=== PATIENT | male | born 1985 | race African-American/Black ===

== ENCOUNTER 2016-12-10 22:50 | Inpatient (IN) | payer SELFPAY ==
[~2016-12-10] VITALS: Ht 188 cm; Wt 100.0 kg
[2016-12-10 22:52] VITALS: O2SAT 100
[2016-12-10] MEDS ORDERED: LORazepam 2 MG/ML VIAL ONE (22:54)
[2016-12-10] MEDS ORDERED: KETAMINE HCL 500 MG/5 ML VIAL ONE (22:55)
[2016-12-10] MEDS ORDERED: ETOMIDATE 20 MG/10 ML VIAL ONE (22:58)
[2016-12-10] MEDS ORDERED: SUCCINYLCHOLINE CHLORIDE 200 MG/10 ML VIAL ONE (22:59)
[2016-12-10] MEDS ORDERED: DIPHTH/TETANUS/ACEL PERTUSSIS (BOOSTER) 0.5 ML VIAL/PFS IM ONE (23:06)
[2016-12-10] MEDS ORDERED: PROPOFOL 1000 MG/100 ML INJ 100 ML ONE (23:07)
[2016-12-10] MEDS ORDERED: ROCURONIUM INJ 50 MG/5 ML VIAL ONE (23:17)
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
[2016-12-10 23:30] VITALS: O2SAT 100
[2016-12-10] MEDS ORDERED: ONDANSETRON HCL 4 MG/2 ML VIAL IV PRN (23:30)
[2016-12-10] MEDS ORDERED: ENALAPRILAT 1.25 MG/ML VIAL IV PRN (23:30)
[2016-12-10] MEDS ORDERED: MISCELLANEOUS NURSING INFORMATION XX SCH (23:30)
[2016-12-10] MEDS ORDERED: fentaNYL DRIP 250 ML IV SCH (23:30)
[2016-12-10] MEDS ORDERED: SODIUM CHLORIDE 0.9% FLUSH 10 ML FLUSH IV FLUSH PRN (23:30)
[2016-12-10] MEDS ORDERED: CHLORHEXIDINE GLUCONATE 2 % 1 PACK (2 CLOTHS) TOP PRN (23:30)
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
[2016-12-10] MEDS ORDERED: IOHEXOL 350 MG/ML 10 ML VIAL (for RAD DIAG) IV ONE (23:34)
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
--- NOTE | 2016-12-10 23:41 | RADRPT ---
EXAM DATE/TIME: 12/10/2016 22:45 [facility] COMPARISON: No previous studies available for comparison. INDICATIONS : Post intubation. MEDICAL HISTORY : None. SURGICAL HISTORY : None. ENCOUNTER: Subsequent ACUITY: 1 day PAIN SCORE: Non-responsive. LOCATION: Bilateral chest FINDINGS: A single view of the chest demonstrates the lungs to be symmetrically aerated without evidence of mas s, infiltrate or effusion. Endotracheal tube 4 cm above the herminio. Nasogastric tube tip in stomach. The cardiomediastinal contours are unremarkable. Osseous structures are intact. CONCLUSION: No acute disease. Greg Hall MD on December 10, 2016 at 23:38 Board Certified Radiologist. This report was verified electronically.
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
[2016-12-10 23:50] VITALS: O2SAT 100
[2016-12-10 23:51] VITALS: O2SAT 100
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
[2016-12-11] VITALS (17 sets, daily range): BP systolic 120–152; BP diastolic 72–89; PULSE 63–85; RESP 18–34; TEMP 99–100.2; O2SAT 97–100
[2016-12-11] MEDS: CHLORHEXIDINE GLUCONATE 2 % 1 PACK (2 CLOTHS) TOP SCH
[2016-12-11] MEDS: LACTATED RINGER'S 1000 ML INJ 1,000 ML IV SCH ×2 (00:03→07:20)
[2016-12-11] MEDS ORDERED: ONDANSETRON HCL 4 MG/2 ML VIAL IV PRN (00:30)
[2016-12-11] MEDS ORDERED: LACTULOSE SYRUP 20 GM/30 ML CUP PO PRN (00:30)
[2016-12-11] MEDS ORDERED: MAGNESIUM HYDROXIDE SUSP 30 ML CUP PO PRN (00:30)
[2016-12-11] MEDS ORDERED: BISACODYL 10 MG SUPP RECTAL PRN (00:30)
[2016-12-11] MEDS ORDERED: MISCELLANEOUS NURSING INFORMATION XX SCH (00:30)
[2016-12-11] MEDS ORDERED: RESP: ALBUTEROL 2.5 MG/3 ML NEB (PRN) INH (00:30)
[2016-12-11] MEDS ORDERED: SENNOSIDES 8.6 MG TAB PO PRN (00:30)
[2016-12-11] MEDS ORDERED: SODIUM CHLORIDE 0.9% FLUSH 10 ML FLUSH IV FLUSH PRN (00:30)
[2016-12-11] MEDS ORDERED: CHLORHEXIDINE GLUCONATE 2 % 1 PACK (2 CLOTHS) TOP PRN (00:30)
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
[2016-12-11] MEDS ORDERED: MULTIVITAMIN INJ 10 ML, THIAMINE INJ 100 MG, FOLIC ACID INJ 1 MG in SODIUM CHLORID 0.9%... IV ONE (01:00)
[2016-12-11 01:03] LABS: AUTOMATED NEUTROPHIL # 7.3 TH/MM3 (1.8-7.7); BASOPHIL % 0.4 % (0.0-2.0); EOSINOPHIL # 0.1 TH/MM3 (0-0.4); EOSINOPHIL % 0.6 % (0.0-4.0); HEMATOCRIT 39.9 % (39.0-51.0); HEMO FLAGS DIFF FINAL; LYMPH % 17.8 % (9.0-44.0); LYMPHOCYTE # 1.7 TH/MM3 (1.0-4.8); MEAN CELL VOLUME 95.3 FL (80.0-100.0); MEAN CORPUSCULAR HEMOGLOBIN 32.8 PG (27.0-34.0); MEAN CORPUSCULAR HGB CONC 34.4 % (32.0-36.0); MONO % 5.1 % (0.0-8.0); NEUT % 76.1 % (16.0-70.0); PLATELET COUNT 228 TH/MM3 (150-450); RED BLOOD COUNT 4.18 MIL/MM3 (4.50-5.90); RED CELL DISTRIBUTION WIDTH 13.4 % (11.6-17.2); WHITE BLOOD COUNT 9.6 TH/MM3 (4.0-11.0)
[2016-12-11 01:08] LABS: INTERNATIONAL NORMALIZED RATIO 0.9 RATIO; PROTHROMBIN TIME - PATIENT 10.4 SEC (9.8-11.6)
[2016-12-11 01:19] LABS: APTT (PATIENT) 22.3 SEC (24.3-30.1)
[2016-12-11] MEDS: levETIRAcetam INJ 500 MG in SODIUM CHLORIDE 0.9% INJ 100 ML IV SCH ×3 (02:14→21:02)
[2016-12-11 02:24] LABS: BLOOD GAS BASE EXCESS 0.7 mmol/L (-2-2); BLOOD GAS CARBOXYHEMOGLOBIN 3.2 % (0-4); BLOOD GAS HCO3 26 mmol/L (22-26); BLOOD GAS METHEMOGLOBIN 1.1 % (0-2); BLOOD GAS O2 HGB SATURATION 95 % (90-100); BLOOD GAS OXYGEN CONTENT 18.9 Vol % (12.0-20.0); BLOOD GAS PCO2 52 mmHg (38-42); BLOOD GAS PO2 258 mmHg (61-120); BLOOD GAS TOTAL HGB 13.7 G/DL (12.0-16.0); TEMP CORR TO 98.6
[2016-12-11 02:28] LABS: CRITICAL VALUE YES
[2016-12-11 02:29] LABS: OXYGEN DEVICE VENTILATOR
[2016-12-11 02:33] LABS: DRAW SITE RT RADIAL; FIO2 50 %; NUMBER OF ARTERIAL PUNCTURES 1; STAT NO; ULNAR PULSE PRESENT
[2016-12-11] MEDS: PROPOFOL 1000 MG/100 ML INJ 100 ML IV SCH ×3 (02:54→11:10)
[2016-12-11] MEDS: BACITRACIN TOP OINT 15 GM TUBE TOP SCH ×3 (02:55→21:02)
[2016-12-11] MEDS ORDERED: CHLORHEXIDINE GLUCONATE 2 % 1 PACK (2 CLOTHS) TOP SCH (04:00)
[2016-12-11 05:20] LABS: AUTOMATED NEUTROPHIL # 6.4 TH/MM3 (1.8-7.7); BASOPHIL % 0.2 % (0.0-2.0); EOSINOPHIL % 0.4 % (0.0-4.0); HEMATOCRIT 40.6 % (39.0-51.0); HEMO FLAGS DIFF FINAL; LYMPH % 24.2 % (9.0-44.0); LYMPHOCYTE # 2.3 TH/MM3 (1.0-4.8); MEAN CELL VOLUME 95.7 FL (80.0-100.0); MEAN CORPUSCULAR HGB CONC 34.5 % (32.0-36.0); MONO % 7.2 % (0.0-8.0); PLATELET COUNT 221 TH/MM3 (150-450); RED BLOOD COUNT 4.24 MIL/MM3 (4.50-5.90); RED CELL DISTRIBUTION WIDTH 13.6 % (11.6-17.2); WHITE BLOOD COUNT 9.4 TH/MM3 (4.0-11.0)
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
[2016-12-11 05:43] LABS: BICARBONATE 29.5 MEQ/L (21.0-32.0); POTASSIUM 3.5 MEQ/L (3.5-5.1)
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
[2016-12-11] MEDS: CHLORHEXIDINE 0.12% (ORAL KIT) 15 ML CUP MT SCH ×2 (08:00→19:18)
[2016-12-11] MEDS: DOCUSATE SODIUM 50 MG/SENNA 8.6 MG TAB PO SCH ×2 (08:20→21:02)
[2016-12-11] MEDS ORDERED: MULTIVITAMIN INJ 10 ML, THIAMINE INJ 100 MG, FOLIC ACID INJ 1 MG in SODIUM CHLORID 0.9%... IV SCH (09:00)
[2016-12-11] MEDS ORDERED: PANTOPRAZOLE SODIUM 40 MG VIAL IV SCH (09:00)
[2016-12-11] MEDS: ARTIFICIAL TEARS OPTH SOLN 15 ML BTL EACH EYE SCH ×3 (09:00→18:00)
[2016-12-11] MEDS ORDERED: DEXMEDETOMIDINE INJ 200 MCG in SODIUM CHLORIDE 0.9% INJ 50 ML IV SCH (09:15)
[2016-12-11] MEDS: SODIUM CHLORIDE 0.9% FLUSH 10 ML FLUSH IV FLUSH SCH ×2 (11:06→21:02)
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
[2016-12-11] MEDS ORDERED: oxyCODONE/ACETAMINOPHEN 5 MG/325 MG TAB PO PRN (12:30)
[2016-12-11] MEDS: DIAZEPAM 2 MG TAB PO SCH ×2 (12:45→21:00)
[2016-12-11] MEDS: oxyCODONE/ACETAMINOPHEN 5 MG/325 MG TAB PO PRN ×2 (13:00→18:17)
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
[2016-12-11] MEDS ORDERED: FAMOTIDINE 20 MG TAB PO SCH (21:00)
[2016-12-12] VITALS: BP 130/76; PULSE 58; RESP 16; TEMP 98.9; O2SAT 98
[2016-12-12] MEDS: CHLORHEXIDINE GLUCONATE 2 % 1 PACK (2 CLOTHS) TOP SCH (00:32)
[2016-12-12 04:00] VITALS: BP 149/84; PULSE 56; RESP 16; TEMP 99.8; O2SAT 100
[2016-12-12] MEDS: DIAZEPAM 2 MG TAB PO SCH ×2 (04:45→12:30)
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
[2016-12-12] MEDS: DOCUSATE SODIUM 50 MG/SENNA 8.6 MG TAB PO SCH (06:53)
[2016-12-12] MEDS: ARTIFICIAL TEARS OPTH SOLN 15 ML BTL EACH EYE SCH ×3 (07:05→16:06)
[2016-12-12] MEDS: CHLORHEXIDINE 0.12% (ORAL KIT) 15 ML CUP MT SCH (07:05)
--- NOTE | 2016-12-12 07:14 | RADRPT ---
EXAM DATE/TIME: 12/12/2016 06:39 [facility] COMPARISON: No previous studies available for comparison. INDICATIONS : Short of breath, follow up trauma MEDICAL HISTORY : closed head injury, right leg fracture SURGICAL HISTORY : None. ENCOUNTER: Subsequent ACUITY: 3 days PAIN SCORE: 2/10 LOCATION: Bilateral chest FINDINGS: A single view of the chest demonstrates the lungs to be symmetrically aerated without evidence of mas s, infiltrate or effusion. The endotracheal and nasogastric tubes have been removed . The cardiomedi astinal contours are unremarkable. Osseous structures are intact. CONCLUSION: Normal examination. Dennis Downs MD on December 12, 2016 at 7:12 Board Certified Radiologist. This report was verified electronically.
[2016-12-12 07:28] LABS: AUTOMATED NEUTROPHIL # 7.2 TH/MM3 (1.8-7.7); BASOPHIL # 0.1 TH/MM3 (0-0.2); BASOPHIL % 0.7 % (0.0-2.0); EOSINOPHIL # 0.1 TH/MM3 (0-0.4); EOSINOPHIL % 1.2 % (0.0-4.0); HEMATOCRIT 41.4 % (39.0-51.0); HEMO FLAGS DIFF FINAL; LYMPH % 25.2 % (9.0-44.0); LYMPHOCYTE # 2.8 TH/MM3 (1.0-4.8); MEAN CELL VOLUME 96.4 FL (80.0-100.0); MEAN CORPUSCULAR HGB CONC 33.2 % (32.0-36.0); MONO % 8.9 % (0.0-8.0); PLATELET COUNT 195 TH/MM3 (150-450); RED CELL DISTRIBUTION WIDTH 13.4 % (11.6-17.2); WHITE BLOOD COUNT 11.2 TH/MM3 (4.0-11.0)
[2016-12-12 07:42] LABS: ALT (GPT) 19 U/L (12-78); ANION GAP 4 MEQ/L (5-15); AST (GOT) 41 U/L (15-37); BICARBONATE 29.1 MEQ/L (21.0-32.0); BLOOD UREA NITROGEN 9 MG/DL (7-18); CHLORIDE 106 MEQ/L (98-107); GLOMERULAR FILTRATION RATE 74 ML/MIN (>89); MAGNESIUM 1.6 MG/DL (1.5-2.5); POTASSIUM 3.6 MEQ/L (3.5-5.1); SODIUM (NA) 139 MEQ/L (136-145)
[2016-12-12 07:45] LABS: ALKALINE PHOSPHATASE 65 U/L (45-117); TOTAL BILIRUBIN ADULT 0.7 MG/DL (0.2-1.0)
[2016-12-12 08:00] VITALS: BP 131/63; PULSE 80; RESP 16; TEMP 99.4; O2SAT 97
[2016-12-12] MEDS ORDERED: VANCOMYCIN HCL 1000 MG VIAL ONE (08:20)
[2016-12-12] MEDS ORDERED: ceFAZolin 2 GM PREMIX 50 ML ONE (08:20)
[2016-12-12] MEDS ORDERED: GENTAMICIN SULFATE 80 MG/2 ML VIAL ONE (08:20)
[2016-12-12] MEDS ORDERED: SODIUM CHLOR 0.9% 250 ML INJ 250 ML ONE (08:21)
[2016-12-12] MEDS: SODIUM CHLORIDE 0.9% FLUSH 10 ML FLUSH IV FLUSH SCH (08:31)
[2016-12-12] MEDS: BACITRACIN TOP OINT 15 GM TUBE TOP SCH (08:31)
[2016-12-12] MEDS: levETIRAcetam INJ 500 MG in SODIUM CHLORIDE 0.9% INJ 100 ML IV SCH (08:31)
[2016-12-12] MEDS ORDERED: LACTATED RINGER'S 1000 ML INJ 1,000 ML IV ONE (08:55)
[2016-12-12] MEDS ORDERED: ONDANSETRON HCL 4 MG/2 ML VIAL IV PUSH ONE (08:55)
[2016-12-12] MEDS ORDERED: PROPOFOL 200 MG/20 ML AMP IV ONE (08:55)
[2016-12-12] MEDS ORDERED: HYDROmorphone HCL PF 2 MG/ML VIAL ONE (09:04)
[2016-12-12] MEDS ORDERED: MIDAZOLAM HCL 5 MG/5 ML VIAL ONE (09:04)
[2016-12-12] MEDS ORDERED: ACETAMINOPHEN 1000 MG/100 ML VIAL IV ONE (09:04)
[2016-12-12] MEDS ORDERED: BUPIVACAINE HCL PF 0.25% 30 ML VIAL ONE (10:29)
[2016-12-12] MEDS ORDERED: LIDOCAINE 1%/EPINEPHrine 1:100,000 SOLN 20 ML VIAL ONE (10:29)
[2016-12-12] MEDS ORDERED: ACETAMINOPHEN/HYDROcodone 325 MG/7.5 MG TAB PO PRN ×2 (10:45)
--- NOTE | 2016-12-12 10:49 | PD.OP ---
cc: Larry Roberto MD Operative Report Date of Surgery: Dec 12, 2016 Preoperative Diagnosis: Displaced right ankle fracture Postoperative Diagnosis: Procedure: Open reduction internal fixation right distal fibula Anesthesia: Gen. Surgeon: Larry Roberto Ceiling Installer(s): SANDOR Shoemaker PA-C The surgical procedure was assisted by my physician licensed loan officer assistant. My P.A. presence was necessary throughout this case for the manipulation and positioning of the surgical extremity. My P.A. was assisting me throughout the duration of this procedure. The skill set of a physician licensed loan officer assistant was medically necessary to complete this procedure. During the surgical case the audiology technician was working at the back table and the physician licensed loan officer assistant was directly assisting me. Operation and Findings: Patient was seen and evaluated preoperatively and found to have a displaced right ankle fracture with subluxation of the ankle joint. Informed consent was obtained after a detailed discussion of risk and benefits of surgery. The operative site was marked. Patient was brought to the OR, placed on the OR table, and given IV sedation and general endotracheal anesthesia. IV antibiotics were given preoperatively. A timeout procedure was performed. The left leg was prepped with alcohol followed by Hibiclens and draped in the usual sterile fashion. Attention was turned towards the distal fibula. A four-inch incision was made over the distal fibula. The subcutaneous tissue was dissected with Bovie. The fracture site was visualized. The fracture site was cleaned with curets. The fracture was now reduced. The fracture keyed into anatomic alignment. K-wires were used to h old provisional fixation. A lag screws placed from anterior to posterior to compress fracture fragments. A Synthes plate was selected. The plate was provisionally held to bone with K-wires. 3.5 cortical screws were used to compress the plate to bone. Multiple screws were placed above and below the fracture. Next, attention was turned to the syndesmosis. The syndesmosis was stressed. There was no widening of the medial clear space or syndesmosis. Fluoroscopy confirmed appropriate fracture alignment and hardware placement. Incisions were thoroughly irrigated. The subcutaneous tissue was closed with 3-0 Vicryl and the skin was closed with 3-0 nylon. Sterile dressings were applied. The patient was transferred to Recovery in stable condition. Larry Roberto MD Dec 12, 2016 10:49
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
[2016-12-12] MEDS ORDERED: fentaNYL CITRATE 250 MCG/5 ML AMP ONE (11:23)
[2016-12-12] MEDS ORDERED: SENN8.6T15 PO (11:42)
[2016-12-12] MEDS ORDERED: MAGN400S PO (11:42)
[2016-12-12] MEDS ORDERED: Post-op Orders (for Pharmacy) MISC XX ONE (12:30)
[2016-12-12] MEDS ORDERED: MORPHINE SULFATE 8 MG/ML INJ IV PUSH PRN (12:30)
[2016-12-12] MEDS ORDERED: WALKER WHEELS/F1 MIS (14:43)
[2016-12-12] MEDS ORDERED: WHEEMIS3 (14:43)
--- NOTE | 2016-12-12 15:03 | RADRPT ---
EXAM DATE/TIME: 12/12/2016 10:38 [facility] COMPARISON: ANKLE RIGHT LIMITED (AP&LAT), December 10, 2016, 22:45. INDICATIONS : Open reduction internal fixation of right fibula. MEDICAL HISTORY : None. SURGICAL HISTORY : None. ENCOUNTER: Initial ACUITY: 1 day PAIN SCORE: Non-responsive. LOCATION: Right Ankle. FINDINGS: 2 views of the ankle are recorded digitally in the operating room using C-arm during placement of int ernal fixation fibular hardware. CONCLUSION: Intraoperative images. Wesley Martins MD on December 12, 2016 at 15:01 Board Certified Radiologist. This report was verified electronically.
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
[2016-12-12 16:33] VITALS: BP 110/58; PULSE 56; RESP 16; TEMP 98; O2SAT 100
[2016-12-12] MEDS ORDERED: PERC5TAB12 PO (17:37)
[2016-12-12] MEDS ORDERED: ceFAZolin 2 GM PREMIX 50 ML IV SCH (18:00)
== END 2016-12-12 18:30 | disposition home or self-care (01) | DRG 492 ==
LOC: NEPI 22:50 → NEDA 23:11 → EEVIPCON 23:11 → EDBD 23:11 → N03A 23:45 → N06B 12-11 20:06
PROVIDERS: ADMIT Surgery; ATTEND Surgery
PROC: 5A1935Z Respiratory Ventilation, Less than 24 Consecutive Hours (ICD-10-PCS; 2016-12-10)
PROC: 0BH17EZ Insertion of Endotracheal Airway into Trachea, Via Natural or Artificial Opening (ICD-10-PCS; 2016-12-10)
PROC: 0HQ0XZZ Repair Scalp Skin, External Approach (ICD-10-PCS; 2016-12-10)
PROC: 0QSJ04Z Reposition Right Fibula with Internal Fixation Device, Open Approach (ICD-10-PCS; principal; 2016-12-12 09:45)
DX: S82.831A Other fracture of upper and lower end of right fibula, initial encounter for closed fracture (principal); J96.00 Acute respiratory failure, unspecified whether with hypoxia or hypercapnia; N17.9 Acute kidney failure, unspecified; R56.1 Post traumatic seizures; S06.0X9A Concussion with loss of consciousness of unspecified duration, initial encounter; S01.01XA Laceration without foreign body of scalp, initial encounter; S82.301A Unspecified fracture of lower end of right tibia, initial encounter for closed fracture; E86.0 Dehydration; F10.129 Alcohol abuse with intoxication, unspecified; F17.200 Nicotine dependence, unspecified, uncomplicated; R40.2412 Glasgow coma scale score 13-15, at arrival to emergency department; Y04.2XXA Assault by strike against or bumped into by another person, initial encounter; Y90.8 Blood alcohol level of 240 mg/100 ml or more
CPT/HCPCS: 36600; 70450; 70486; 71010; 71260; 72125; 72170; 73600; 74177; 76000; 80048; 80053; 80307; 82435; 82565; 82805; 82947; 83735; 84132; 84295; 84520; 85025; 85610; 85730; 86850; 86900; 86901; 87641; 90715; 94002; 94003; 94150; 95819; C1713; C9113; J0131; J0330; J0690; J1170; J1580; J1953; J2060; J2250; J2405; J3010; J3370; J3411; J7040; J7050; J7120; Q9967